=== PATIENT | male | born 1960 | race Caucasian/White ===

== ENCOUNTER 2017-07-14 01:25 | Emergency (ER) | payer BC, OTHER ==
--- NOTE | 2017-07-14 01:29 | PDOC ---
History of Present Illness - General Chief Complaint: Pain, Acute Stated Complaint: PAIN AND SWELLING TO LEFT ANKLE Time Seen by Provider: 07/14/17 01:28 - History of Present Illness Initial Comments: This 56-year-old man with a history of right knee pain and swelling 2 weeks ago (now resolved) and several day history of left ankle pain and swelling presents with progressive pain in the ankle despite taking indomethacin. Patient has a past medical history of gout but uric acid levels taken 2 weeks ago were normal. Patient states that while his right knee was swollen and painful, he likely overused his left leg. He began having discomfort in the left ankle/ foot about a week ago. He saw his PMD 2 days ago and uric acid/Lyme titers were drawn. He was given indomethacin for anti-inflammatory effects but has only had increased pain since then. He has no other joint pain or swelling. He denies fever/chills. No history of acute trauma to the left lower extremity Past History - Past Medical History Allergies/Adverse Reactions: Allergies Allergy/AdvReac Type Severity Reaction Status Date / Time No Known Allergies Allergy Verified 07/14/17 02:07 Home Medications: Ambulatory Orders Ketorolac Tromethamine [Toradol] 10 mg PO TID PRN #15 tablet 07/14/17 Oxycodone HCl/Acetaminophen [Percocet 5-325 mg Tablet] 1 tab PO Q6H PRN #8 tablet MDD 3 07/14/17 *Physical Exam - Physical Exam Comments: GENERAL: Adult male, alert and oriented 3, in moderate distress secondary to left ankle pain HEAD: Normal with no signs of trauma. EYES: PERRLA, EOMI, sclera anicteric, conjunctiva clear. ENT: Ears normal, nares patent, oropharynx clear without exudates. Moist mucous membranes. NECK: Normal range of motion, supple without lymphadenopathy, JVD, or masses. LUNGS: Breath sounds equal, clear to auscultation bilaterally. No wheezes, and no crackles. HEART:Regular rate and rhythm, normal S1 and S2 without murmur, rub or gallop. ABDOMEN:.normal bowel sounds No guarding,tenderness or rebound.No masses No distention. EXTREMITIES: Left ankle- mildly edematous/no erythema or increased warmth, moderate tenderness lateral and medial malleoli No tenderness/edema/erythema/ increased warmth of foot Remainder of the extremity exam is normal NEUROLOGICAL: Cranial nerves II through XII grossly intact. Normal speech. No focal neurological deficits. MUSCULOSKELETAL: Back non-tender to palpation, no CVA tenderness SKIN: Warm, Dry, normal turgor, no rashes or lesions noted. Left ankle x-ray preliminary reading shows no evidence of fracture/dislocation or other acute bony process Progress Note - Progress Note Progress Note: Patient given Toradol 60 mg IM Clinical presentation most consistent with either soft tissue injury to (e.g. sprain) secondary to overuse or acute gout. in any case, patient needs effective anti-inflammatory medication. While patient tolerates results of uric acid/Lyme test performed 2 days ago, he should stop indomethacin which has not been effective for him. Patient recalls that Toradol was very effective for him(prescribed in oral form after IM administration) when he had cervical radiculopathy Prescription for Toradol 10 mg up to 3 times a day for 5 days has been transmitted to his pharmacy Because of his marked pain now, patient was also given Percocet 5/325 one tablet now with prescription for (#10 )tablets sent to his pharmacy to be used for severe pain *DC/Admit/Observation/Transfer Diagnosis at time of Disposition: Left ankle pain Qualifiers: Chronicity: acute Qualified Code(s): M25.572 - Pain in left ankle and joints of left foot - Discharge Dispostion Disposition: HOME Condition at time of disposition: Stable - Prescriptions Prescriptions: Ketorolac Tromethamine [Toradol] 10 mg PO TID PRN #15 tablet PRN Reason: Pain Oxycodone HCl/Acetaminophen [Percocet 5-325 mg Tablet] 1 tab PO Q6H PRN #8 tablet MDD 3 PRN Reason: Severe Pain - Referrals - Patient Instructions Printed Discharge Instructions: DI for Ankle Pain Additional Instructions: Elevate left ankle as much as possible Crutches for ambulation Stop indomethacin Ketorolac 10 mg up to 3 times a day as needed; take with food Percocet 5/325 every 6 hours as needed for severe pain (3 tablets maximum each day) Follow-up with your doctor as scheduled Return to ER if you have severe, persistent pain or increased swelling in the ankle - Post Discharge Activity
[2017-07-14 02:13] VITALS: PULSE 88; TEMP 98.1; BMI 25.8
[2017-07-14] MEDS ORDERED: KETOROLAC TROMETHAMINE 60 MG/2 ML VIAL IM ONE (02:35)
[2017-07-14] MEDS ORDERED: KETOROLAC TROMETHAMINE 60 MG/2 ML VIAL ONE (02:44)
[2017-07-14 03:15] VITALS: BP 158/109
== END 2017-07-14 03:31 | disposition home or self-care (01) ==
LOC: FER 01:25
PROC: 3E0233Z Introduction of Anti-inflammatory into Muscle, Percutaneous Approach (ICD-10-PCS; principal; 2017-07-14)
DX: M25.572 Pain in left ankle and joints of left foot (principal)
CPT/HCPCS: 73610-TC-LT; 99281-25

== ENCOUNTER 2020-08-08 10:36 | Emergency (ER) | payer OTHER ==
[2020-08-08] MEDS ORDERED: ASPIRIN 325 MG TABLET PO ONE (10:41)
[2020-08-08] MEDS ORDERED: SODIUM CHLORIDE 1,000 ML IV STA (10:41)
[2020-08-08] MEDS ORDERED: ASPIRIN 325 MG TABLET ONE (10:42)
[2020-08-08] MEDS ORDERED: ASPIRIN 81 MG CHEWABLE TABLETS ONE (10:44)
[2020-08-08] MEDS ORDERED: morphine CARPU-JECT 2 MG/1 ML DISP.SYRIN IVPUSH ONE (10:51)
[2020-08-08] MEDS ORDERED: morphine SULFATE 4 MG/ML VIAL ONE (10:51)
[2020-08-08] MEDS ORDERED: HEPARIN NA (PORCINE) 5,000 UNITS/ML 1ML VIAL IVPUSH ONE (10:55)
[2020-08-08] MEDS ORDERED: HEPARIN INFUSION - 25,000 UNITS/500 ML INFUS.BAG IVPB ONE (10:56)
[2020-08-08] MEDS ORDERED: HEPARIN NA (PORCINE) 5,000 UNITS/ML 1ML VIAL ONE (10:56)
[2020-08-08] MEDS ORDERED: HEPARIN - 25,000 UNIT in SODIUM CHLORIDE 495 ML IV SCH (11:00)
[2020-08-08] MEDS ORDERED: ACETAMINOPHEN 1000 MG/100 ML VIAL (NON FORMULARY) IVPB ONE (11:03)
[2020-08-08] MEDS ORDERED: ACETAMINOPHEN INJECTION 100 ML IVPB ONE (11:06)
[2020-08-08 11:07] LABS: EOS % 1.2 % (0-4.5); HEMOGLOBIN 13.8 GM/dl (11.7-16.9); MEAN CELL VOLUME 90.5 fl (80-96); RDW 12.9 % (11.9-15.9)
[2020-08-08 11:13] LABS: BASO % 2.6 % (0-2.0); HEMATOCRIT 41.1 % (35.4-49); MCH 30.4 pg (25.7-33.7); MCHC 33.6 g/dl (32.0-35.9); MEAN PLT VOLUME 8.6 fl (7.5-11.1); MONO % 6.5 % (3.8-10.2); NEUT % 76.7 % (42.8-82.8); PLATELET COUNT 284 K/MM3 (134-434); RBC 4.54 M/mm3 (4.00-5.60); WHITE BLOOD COUNT 10.1 K/mm3 (4.0-10.8)
[2020-08-08] MEDS ORDERED: RAPID SEQUENCE INTUBATION KIT NR ONE ×3 (11:18→11:40)
[2020-08-08 11:29] LABS: ALBUMIN 4.1 g/dl (3.4-5.0); BILIRUBIN,TOTAL 0.5 mg/dl (0.2-1); CALCIUM 9.3 mg/dl (8.5-10); CREATININE 1.1 mg/dl (0.55-1.3); MAGNESIUM 1.9 mg/dL (1.8-2.4); POTASSIUM 5.1 mmol/L (3.5-5.1); TOT PROT 7.5 g/dl (6.4-8.2)
[2020-08-08] MEDS ORDERED: ROCURONIUM BROMIDE 50 MG/5 ML VIAL ONE (11:41)
[2020-08-08] MEDS ORDERED: FENTANYL NS IVPB 500 MCG/100 ML BAG IVPB ONE (11:48)
[2020-08-08 11:54] VITALS: BMI 26.6
[2020-08-08] MEDS ORDERED: LIDOCAINE 0.4% PREMIX IVPB 2,000 MG/500 ML INFUS..BTL IV SCH (12:00)
[2020-08-08] MEDS ORDERED: FENTANYL IVPB 500 MCG/100 ML BAG IVPB SCH (12:15)
[2020-08-08 14:39] VITALS: BP 180/77; PULSE 113; TEMP 98.6
== END 2020-08-08 12:35 | disposition short-term general hospital (02) ==
LOC: FER 10:36
PROC: 0BH17EZ Insertion of Endotracheal Airway into Trachea, Via Natural or Artificial Opening (ICD-10-PCS; principal; 2020-08-08)
PROC: 3E033NZ Introduction of Analgesics, Hypnotics, Sedatives into Peripheral Vein, Percutaneous Approach (ICD-10-PCS; 2020-08-08)
PROC: 3E033GC Introduction of Other Therapeutic Substance into Peripheral Vein, Percutaneous Approach (ICD-10-PCS; 2020-08-08)
DX: I46.9 Cardiac arrest, cause unspecified (principal); I48.0 Paroxysmal atrial fibrillation; I21.3 ST elevation (STEMI) myocardial infarction of unspecified site
CPT/HCPCS: 36415; 71045-TC-FY; 80053; 82550; 83735; 84484; 85025; 86850; 86900; 86901; 93005; 99291; 99292; J0131; J1644

== ENCOUNTER 2023-01-31 07:01 | Day surgery (SDC) | payer OTHER ==
[2023-01-25 11:11] VITALS: BMI 26.3
[2023-01-31] MEDS ORDERED: BUPIVACAINE HCL/PF 2.5 MG/ML - 30 ML VIAL IJ ONE (08:31)
[2023-01-31] MEDS ORDERED: MIDAZOLAM HCL 2 MG/2 ML SINGLE DOSE VIAL ONE (08:39)
[2023-01-31] MEDS ORDERED: BUPIVACAINE HCL/PF 0.25% (2.5MG/ML) 10 ML VIAL IJ ONE (09:30)
[2023-01-31] MEDS ORDERED: ONDANSETRON 4 MG/2 ML VIAL IVPUSH PRN (09:47)
[2023-01-31] MEDS ORDERED: oxyCODONE HCL 5 MG TABLET PO PRN (09:47)
[2023-01-31] MEDS ORDERED: LACTATED RINGERS SOLUTION 1,000 ML IV SCH (10:00)
[2023-01-31 11:12] VITALS: RESP 16; TEMP 97.7
[2023-01-31 11:14] VITALS: BP 116/73; PULSE 70
== END 2023-01-31 11:20 | disposition home or self-care (01) ==
LOC: FASU 07:01
PROVIDERS: ATTEND Orthopaedic Surgery
PROC: 0SBD4ZZ Excision of Left Knee Joint, Percutaneous Endoscopic Approach (ICD-10-PCS; 2023-01-31)
PROC: 0SBD4ZZ Excision of Left Knee Joint, Percutaneous Endoscopic Approach (ICD-10-PCS; principal; 2023-01-31 09:12)
DX: S83.242A Other tear of medial meniscus, current injury, left knee, initial encounter (principal); S83.282A Other tear of lateral meniscus, current injury, left knee, initial encounter; S83.8X2A Sprain of other specified parts of left knee, initial encounter; M65.862 Other synovitis and tenosynovitis, left lower leg; X58.XXXA Exposure to other specified factors, initial encounter; Y93.9 Activity, unspecified; Y92.9 Unspecified place or not applicable
CPT/HCPCS: 94760